=== PATIENT | female | born 1995 | race Caucasian/White ===

== ENCOUNTER 2017-08-22 18:29 | Emergency (ER) | payer BC, OTHER ==
[2017-08-22 18:35] VITALS: BP 123/79
--- NOTE | 2017-08-22 18:46 | EDPHY ---
General - History Smoking Status: Current some day smoker Time Seen by Provider: 08/22/17 18:36 Narrative: CHIEF COMPLAINT: Hemorrhoid HISTORY OF PRESENT ILLNESS: Patient presents with complaints of hemorrhoid. She noticed some itching in the area 5 days ago. Progressed to pain 2-3 days ago. She has associated with some constipation out of fear of having a painful bowel movement. She has no bleeding. She has no abdominal or pelvic pain. No fever chills. She has been seen at urgent care earlier today, and they sent her to our facility for possible excision of thrombosed hemorrhoid. She has no previous experience with these. She has no narcotic use. She has not recently been hospitalized. No other associated complaints or modifying factors. MEDICAL/SURGICAL/SOCIAL HISTORY: Uncomplicated medical history. Oral contraceptive use. Nonsmoker. Lives and works here independently. REVIEW OF SYSTEMS: Ten systems reviewed and are negative unless otherwise noted in the HPI EXAMINATION General Appearance: Alert, no distress Head: normocephalic, atraumatic Cardiovascular: Pulses normal throughout. Brisk cap refill Rectal: Female RN ([place]umou) present. There is a non-thrombosed external hemorrhoid at 12:00 position. Approximately 1 cm in diameter. No bleeding. Skin: Warm and dry, no rash. External hemorrhoid as below. I do not appreciate any evidence of perianal or perirectal abscess. Extremities: Nontender, no pedal edema MDM: 6:50 p.m. Nonthrombosed, external hemorrhoid without evidence of perianal or perirectal abscess. Exam is otherwise within normal limits. I do not feel that excision is indicated as she is not thrombosed. There is no bleeding. Vital signs are within normal limits. There is no abnormality of the skin otherwise. We discussed discharge home with [id number] remedies as documented. We discussed returning here in 48 hr if no improvement, or sooner for any worsening or evidence of thrombosis as demonstrated. I also have provided the on-call general surgeon for her to see outpatient for definitive care. She is comfortable this plan and discharged home in stable condition SUPERVISION: Independent evaluation ED Precautions: Worsening pain. Erythema, edema, cyanosis, pallor, paresthesia or anesthesia. (Michael Bah) - Objective Vital Signs: Initial Vital Signs Temperature (C) 98.6 F 08/22/17 18:32 Heart Rate 67 08/22/17 18:32 Respiratory Rate 16 08/22/17 18:32 Blood Pressure 123/79 H 08/22/17 18:32 O2 Sat (%) 98 08/22/17 18:32 O2 Delivery Mode Room Air Allergies/Adverse Reactions: No Known Allergies Allergy (Unverified 08/22/17 18:32) Home Medications: Medication Instructions Recorded Hydrocortisone Acetate [Anucort-Hc] 25 mg RC BID #12 supp.rect 08/22/17 Ortho Tri-Cyclen 28 Tablet 08/22/17 Departure - Departure Disposition: Home, Routine, Self-Care Clinical Impression: External hemorrhoid Condition: Good Instructions: Hemorrhoids (ED), Rubber Band Ligation (DC) Additional Instructions: 1. Sitz baths 4 times daily as discussed 2. Odbm-xnj-jypryeh stool softeners, Senna 1 pill by mouth twice daily as discussed 3. Suaq-kdl-udirqxt MiraLax, 1 packet once daily 4. Increase fluid intake 5. Contact the on-call surgeon Dr. Moraes to be evaluated in his office for definitive care the hemorrhoid 6. Return here for changes as discussed, severe pain, bleeding, constipation Referrals: Scott Moraes MD [Medical Doctor] - As per Instructions Prescriptions: Hydrocortisone Acetate [Anucort-Hc] 25 mg RC BID #12 supp.rect
== END 2017-08-22 19:05 | disposition home or self-care (01) ==
DX: K64.4 Residual hemorrhoidal skin tags (principal); F17.200 Nicotine dependence, unspecified, uncomplicated